=== PATIENT | female | born 1990 | race Two or more races ===

== ENCOUNTER 2021-03-15 05:36 | Emergency (ER) | payer MEDICAID, OTHER ==
[~2021-03-15] VITALS: Ht 157.5 cm; Wt 68.2 kg
[2021-03-15 05:45] VITALS: BP 118/83
--- NOTE | 2021-03-15 05:53 | NUR ---
[facility]POR[facility] PATIENT OFF MEDICATIONS FOR SCHIZOPHRENIA FOR ONE WEEK. HAVING AUDITORY HALLUCINATIONS, DENIES SI. PATIENT IS HYPERFOCUSED ON WASHING HER FEET, BUT IS COOPERATIVE WITH STAFF.
--- NOTE | 2021-03-15 06:37 | NUR ---
Patient given discharge instructions and they have confirmed that they understand the instructions. Patient ambulatory with steady gait. NAD, all questions answered appropriately, denies additional needs at this time. No personal belongings left in room after discharge.
== END 2021-03-15 06:39 | disposition home or self-care (01) ==
LOC: ED 06:34
DX: F15.10 Other stimulant abuse, uncomplicated (principal); Z72.9 Problem related to lifestyle, unspecified
CPT/HCPCS: 99283

== ENCOUNTER 2021-03-15 21:41 | Emergency (ER) | payer OTHER ==
[~2021-03-15] VITALS: Ht 170.2 cm; Wt 70.4 kg
[2021-03-15 23:07] LABS: BASOPHILS % (AUTO) 1 % (0-1); EOSINOPHILS % (AUTO) 2 % (1-7); LYMPHOCYTES % (AUTO) 20 % (22-44); MEAN CORPUSCULAR HEMOGLOBIN 27.4 pg (27.0-34.8); MEAN CORPUSCULAR HGB CONC 33.4 g/dL (32.4-35.8); MEAN PLATELET VOLUME 8.8 fL (7.4-10.4); MONOCYTES % (AUTO) 9 % (2-9); NEUTROPHILS % (AUTO) 69 % (42-75); PLATELET COUNT 299 x10^3/uL (130-400); RED BLOOD COUNT 4.87 x10^6/uL (3.82-5.3); RED CELL DISTRIBUTION WIDTH 14.8 % (9.6-15.2)
[2021-03-15 23:11] LABS: ALANINE AMINOTRANSFERASE 17 U/L (12-78); ALBUMIN 3.6 g/dL (3.4-5.0); ANION GAP 8 mmol/L (5-15); CALCIUM 8.2 mg/dL (8.5-10.1); CHLORIDE 106 mmol/L (98-107); SALICYLATE LEVEL 5.1 mg/dL (2.8-20.0)
[2021-03-15 23:16] LABS: ALKALINE PHOSPHATASE 90 U/L (45-117); BILIRUBIN,TOTAL 0.5 mg/dL (0.2-1.0); CREATININE 0.65 mg/dL (0.55-1.02); TOTAL PROTEIN 7.6 g/dL (6.4-8.2)
--- NOTE | 2021-03-15 23:56 | NUR ---
inspector filter tip: patient to room from wall with RAFAEL.
--- NOTE | 2021-03-16 00:05 | NUR ---
PATIENT BROUGHT TO ROOM 2. PATIENTS SITTING COMFORTABLY IN BED. VSS. ROOM SECURED. BELONGINGS SECURED. PATIENT HAS NO CURRENT NEEDS AT THIS TIME
[2021-03-16 00:56] VITALS: BP 110/75
--- NOTE | 2021-03-16 01:17 | NUR ---
PATIENTS SLEEPING COMFORTABLY IN BED. PATIENT HAS NO CURRENT NEEDS AT THIS TIME
[2021-03-16 01:19] LABS: AMPHETAMINE SCREEN, URINE Positive (Negative); BARBITURATE SCREEN, URINE Negative (Negative); BENZODIAZEPINE SCREEN, URINE Negative (Negative); CANNABINOID SCREEN, URINE Positive (Negative); COCAINE SCREEN, URINE Negative (Negative); METHADONE SCREEN, URINE Negative (Negative); OPIATE SCREEN, URINE Negative (Negative)
== END 2021-03-16 02:23 | disposition left against medical advice (07) ==
LOC: ED 22:00
DX: F15.10 Other stimulant abuse, uncomplicated (principal); Z72.9 Problem related to lifestyle, unspecified
CPT/HCPCS: 36415; 80053; 80299; 80307; 80320; 80329; 84703; 85025; 99283; G0480

== ENCOUNTER 2021-03-18 04:14 | Emergency (ER) | payer MEDICAID ==
--- NOTE | 2021-03-18 04:31 | NUR ---
PT NIL X 1
--- NOTE | 2021-03-18 06:11 | NUR ---
not in lobby per integrated marketing intern pt left
== END 2021-03-18 06:13 | disposition left against medical advice (07) ==
LOC: ED 04:30
DX: Z53.21 Procedure and treatment not carried out due to patient leaving prior to being seen by health care provider (principal)